=== PATIENT | male | born 1970 | race Caucasian/White ===

== ENCOUNTER 2017-09-27 09:23 | Emergency (ER) | payer BC ==
[2017-09-27 09:39] VITALS: BP 137/90
--- NOTE | 2017-09-27 10:13 | UC ---
Knee Pain HPI - HPI Summary HPI Summary: 47 y/o male presents to the urgent care c/o left knee pain since last 09/20. Pain worsen yesterday when he was kneeling and twisted his knee. Pain at rest is 0/10 and with walking is 7/10. Pt has not taking anything to alleviate symptoms. Pt denies Hx of injury, numbness or tingling sensation over the left leg or foot, redness, lumps, calf pain, SOB, chest pain, abdominal pain, N/V/D. Pt works every night standing up. - History of Current Complaint Chief Complaint: UCLowerExtremity Stated Complaint: LEG INJURY Time Seen by Provider: 09/27/17 10:06 Hx Obtained From: Patient Onset/Duration: Gradual Onset, Lasting Weeks - 1 week, Still Present, Worse Since - yesterday Severity Initially: Mild Severity Currently: Moderate Pain Intensity: 7 - w/ walking Pain Scale Used: 0-10 Numeric Character: Sharp, Dull Aggravating Factor(s): Other - walking Alleviating Factor(s): Rest Associated Signs And Symptoms: Positive: Negative. Negative: Swelling, Redness , Bruising, Fever, Weakness, Numbness, Tingling Able to Bear Weight: Yes - Risk Factors Septic Arthritis Risk Factor: Negative Gout Risk Factor: Negative - Allergies/Home Medications Allergies/Adverse Reactions: Allergies Allergy/AdvReac Type Severity Reaction Status Date / Time No Known Allergies Allergy Verified 09/27/17 09:39 PMH/Surg Hx/FS Hx/Imm Hx Previously Healthy: Yes - Pt denies PMHX - Surgical History Surgical History: None - Family History Known Family History: Positive: Cardiac Disease, Diabetes - Social History Occupation: Employed Full-time Lives: With Family Alcohol Use: None Substance Use Type: None Smoking Status (MU): Heavy Every Day Tobacco Smoker - Immunization History Most Recent Tetanus Shot: UNK Review of Systems Constitutional: Negative Skin: Negative Eyes: Negative ENT: Negative Respiratory: Negative Cardiovascular: Negative Gastrointestinal: Negative Genitourinary: Negative Motor: Negative Neurovascular: Negative Musculoskeletal: Decreased ROM - LF knee, Other: - left knee pain Neurological: Negative Psychological: Negative Is Patient Immunocompromised?: No All Other Systems Reviewed And Are Negative: Yes Physical Exam - Summary Physical Exam Summary: Vital Signs Reviewed: Yes General: well developed, well nourished male sitting in the examining table w/o any apparent distress Eyes: Positive: Conjunctiva Clear - PERRLA, EOMI, fundi grossly normal ENT: Positive: Normal ENT inspection, Hearing grossly normal, Pharynx normal, TMs normal Neck: Positive: Supple, Nontender, No Lymphadenopathy Respiratory: Positive: Chest nontender, Lungs clear, Normal breath sounds, No respiratory distress Cardiovascular: Positive: RRR, No Murmur, Pulses Normal, Brisk Capillary Refill Abdomen Description: Positive: Nontender, No Organomegaly, Soft. Negative: CVA Tenderness (R), CVA Tenderness (L) Bowel Sounds: Positive: Present Musculoskeletal: Positive: Strength Intact, No Edema, LF Knee: Pt is able to bear weight and ambulate with limping. No surface trauma, soft tissue swelling, or obvious effusion. No overlying erythema or warmth. The L knee is without obvious asymmetry or deformity when compared with the R knee , LF knee=RT knee equal in size 20cm.. Decreased ROM of LF knee due to pain. No tenderness to palpation of the patella, no effusion or ballottement. No tenderness over the infrapatellar tendon. No tenderness over the medial joint line, Tenderness over the lateral tibial plateaus and posterior knee, No tenderness, fullness or mass of the popliteal fossa. No quadriceps tenderness. No laxity of the ACL. PCL , MCL, or LCL. no collateral ligament laxity to valgus or varus stress. Negative Cyndi/Drawer sign. Negative Kimberly. Distal motor and neurovascular status intact. Neurological Exam: Normal Psychological Exam: Normal Skin Exam: Normal Triage Information Reviewed: Yes Vital Signs: Initial Vital Signs Temp 98.1 F 09/27/17 09:34 Pulse 91 09/27/17 09:34 Resp 20 09/27/17 09:34 BP 137/90 09/27/17 09:34 Pulse Ox 97 09/27/17 09:34 Knee Pain Course/Dx - Course Course Of Treatment: 47 y/o male presents to the urgent care c/o left knee pain since last Saturday09/21/5027. Pain worsen yesterday when he was kneeling and twisted his knee. Pain at rest is 0/10 and with walking is 7/10. Pt has not taking anything to alleviate symptoms. Pt denies Hx of injury, numbness or tingling sensation over the left leg or foot, redness, lumps, calf pain, SOB, chest pain, abdominal pain, N/V/D.Pt works every night standing up. Hx obtained. LF knee X-ray ordered. Impression:No acute osseous injury. Pt's knee immobilized w/ vaughn bandage.Advised RICE. Avoid strenuous exercise or standing for long period of time. Pt Rx Naproxen PO and if not improvement of symptoms to f/u with Orthopedic Dr Amaya or your PCP in 1 week for further evaluation and treatment. Pt's BP is elevated today advised to decrease salt in diet, monitor BP and f/u with PCP for further management. PT understood and agreed with D/C instructions. Pt left the clinic hemodynamically stable and ambulating. - Differential Dx/Diagnosis Differential Diagnosis/HQI/PQRI: Bursitis, Fracture (Closed), Gout, Kristina- Schlatter Disease, Patellofemoral Syndrome, Sprain, Strain, Tendonitis Provider Diagnoses: 1- Acte left knee pain. 2- Elevated BP w/o Hx of HTN Discharge - Sign-Out/Discharge Documenting (check all that apply): Discharge/Admit/Transfer - D/c home - Discharge Plan Condition: Stable Disposition: HOME Prescriptions: Naproxen TAB* [Naprosyn 250 mg TAB*] 250 mg PO Q8H PRN #30 tab PRN Reason: Pain Patient Education Materials: Knee Pain (ED), Low-Sodium Diet (ED) Forms: *Work Release Referrals: [facility] [[facility]] - 1 Week Dhiraj Amaya MD [Medical Doctor] - 1 Week Additional Instructions: 1-Please take medications as directed to alleviate pain and swelling. 2-Please apply ice, keep your knee immobilized with the splint. 3- Please f/u with Orthopedic Dr Amaya or your PCP in 1 week is not improvement of symptoms for further evaluation and treatment. 4-Your BP is border line elevated today. please decrease salt in your diet, monitor BP and if it continues to be elevated please f/u with your PCP for further management - Billing Disposition and Condition Condition: STABLE Disposition: HOME
--- NOTE | 2017-09-27 10:21 | RAD ---
INDICATION: Left knee pain COMPARISON: None TECHNIQUE: Standing weightbearing AP, lateral, tunnel, and sunrise views were obtained. FINDINGS: The bony structures, joint spaces, and soft tissues are normal for age. IMPRESSION: NO PLAIN RADIOGRAPHIC ABNORMALITIES.
--- NOTE | 2017-10-01 07:16 | UC ---
- Progress Note Progress Note: Pt with nonreactive HIV 1+ 2 No change in management 10/01/17 7:15 [facility] Discharge - Sign-Out/Discharge Documenting (check all that apply): Post-Discharge Follow Up - Discharge Plan Condition: Stable Disposition: HOME Prescriptions: Naproxen TAB* [Naprosyn 250 mg TAB*] 250 mg PO Q8H PRN #30 tab PRN Reason: Pain Patient Education Materials: Knee Pain (ED), Low-Sodium Diet (ED) Forms: *Work Release Referrals: [facility] [place] [facility] [Outside] - 1 Week Dhiraj Amaya MD [Medical Doctor] - 1 Week Additional Instructions: 1-Please take medications as directed to alleviate pain and swelling. 2-Please apply ice, keep your knee immobilized with the splint. 3- Please f/u with Orthopedic Dr Amaya or your PCP in 1 week is not improvement of symptoms for further evaluation and treatment. 4-Your BP is border line elevated today. please decrease salt in your diet, monitor BP and if it continues to be elevated please f/u with your PCP for further management - Billing Disposition and Condition Condition: STABLE Disposition: HOME
== END 2017-09-27 10:35 | disposition home or self-care (01) ==
LOC: UCEAST 09:23
DX: M25.562 Pain in left knee (principal); R03.0 Elevated blood-pressure reading, without diagnosis of hypertension; X50.1XXA Overexertion from prolonged static or awkward postures, initial encounter; Y92.9 Unspecified place or not applicable; Z11.4 Encounter for screening for human immunodeficiency virus [HIV]
CPT/HCPCS: 36415; 86703; 99202; G0463

== ENCOUNTER 2017-10-17 10:06 | Day surgery (SDC) | payer BC ==
[~2017-10-17 10:06] MED LIST: Buffered Lidocaine 0.9% SYRIN* 5 ML/SYR SYRINGE INTRADERM ONE
[2017-10-17] MEDS ORDERED: ceFAZolin 2 GM PREMIX (*) 2 GM/50 ML BAG IVPB ONE (10:14)
[2017-10-17] MEDS ORDERED: fentaNYL* 50 MCG/ML 2 ML VIAL (100 MCG VIAL) ONE ×2 (13:28→14:47)
[2017-10-17] MEDS ORDERED: Midazolam* 1 MG/ML 2 ML VIAL (2 MG) ONE (13:28)
[2017-10-17] MEDS ORDERED: DiMENhydriNATE IV* 50 MG/ML VIAL ONE (14:19)
[2017-10-17] MEDS ORDERED: Propofol* 10 MG/ML 20 ML BTL IV PUSH ONE (14:19)
[2017-10-17] MEDS ORDERED: Dexamethasone IV* 4 MG/ML 1 ML (4 MG) ONE (14:19)
[2017-10-17] MEDS ORDERED: Ketorolac INJ* 30 MG/ML 1 ML VIAL ONE (14:19)
[2017-10-17] MEDS ORDERED: fentaNYL* 50 MCG/ML 2 ML VIAL (100 MCG VIAL) IV PRN (14:53)
[2017-10-17] MEDS ORDERED: Naloxone* 0.4 MG/ML 1 ML VIAL IV PRN (14:53)
[2017-10-17] MEDS ORDERED: Acetaminophen TAB* 325 MG PO PRN (14:53)
[2017-10-17] MEDS ORDERED: Levalbuterol 0.63MG/3ML NEB* UNIT OF USE INH PRN (14:53)
[2017-10-17] MEDS ORDERED: HYDROcodone/ACETAMIN 5-325 MG* 1 TAB PO PRN (14:53)
[2017-10-17] MEDS ORDERED: PROCHLORPERAZINE INJ 5 MG/ML 2 ML VIAL IV PRN (14:53)
[2017-10-17] MEDS ORDERED: Ondansetron ODT TAB* 4 MG PO PRN (14:53)
--- NOTE | 2017-10-17 15:48 | OP ---
Operative Report - Blank - Operative Report Date of Operation: 10/17/17 Note: PATIENT: Hussain Benavides DATE OF : 1970 DATE OF SURGERY: 10/17/2017 SURGEON: Robel Cervantes MD YARD SWITCHER: MICHELL Sarmiento, whos assistance was necessary for positioning, retraction, help with instrumentation, and closure. ANESTHESIOLOGIST: Dr. Rodríguez PREOPERATIVE DIAGNOSIS: Left knee bucket-handle lateral meniscus tear POSTOPERATIVE DIAGNOSIS: Left knee bucket-handle lateral meniscus tear OPERATION: Left knee arthroscopy with partial lateral meniscectomy ANESTHESIA: GETA IMPLANTS: none TOURNIQUET TIME: Less than one hour with a well-padded thigh tourniquet at 250 mmHg. SPECIMENS: None ESTIMATED BLOOD LOSS: minimal COMPLICATIONS: none STATUS: Stable from the operating room to the recovery room and then home. INDICATIONS FOR PROCEDURE: Hussain had a knee injury with a displaced bucket handle lateral meniscus tear. He was having difficulty with motion and weightbearing. Both operative and non operative treatment alternatives were reviewed. Further, the nature and risks of surgery were reviewed in careful detail, in the office as well as the pre- operative holding area. Our discussions regarding the risks of surgery included , but were not limited to, infection, wound problems, nerve injury, neuroma, RSD , persistent symptoms, blood clot, failure of the surgery, need for further surgery, development of arthritis, and even the remote chance of catastrophic complication, including loss of limb. DESCRIPTION OF PROCEDURE: The patient was seen in the preoperative holding unit and informed written consent was obtained. The appropriate extremity was marked. The patient was then brought to the operating room and carefully positioned on the operating room table. Anesthesia was induced. All bony prominences were padded with great care. A well-padded thigh tourniquet was placed. A chlorhexidine based pre- scrub was performed followed by a chloraprep prep and drape in standard sterile fashion. A surgical safety pause was then conducted in which we confirmed the appropriate patient, extremity, planned procedure, availability of equipment, indication and administration of prophylactic antibiotics, and DVT prophylaxis in the form of a compression boot on the non-surgical extremity. I began with an Esmarch exsanguination of the limb and inflated the tourniquet. I insufflated the joint by injecting sterile saline. I began by making a standard anterolateral knee arthroscopy portal. The arthroscope was inserted into the knee joint and a diagnostic arthroscopy was performed. There were no advanced arthritic changes. Then under direct visualization, and anteromedial arthroscopy portal was made. I introduced a probe into the joint. The displaced lateral meniscus was sitting in the notch. I reduced this into the lateral compartment. A biter and oscillating shaver were used to debride the lateral meniscal tear back to a stable rim. I then performed an extensive irrigation of the joint while running the shaver in each of the knee compartments to remove any loose debris. Once thoroughly irrigated and debrided, I suctioned the fluid out of the joint. The arthroscopy portals were then closed utilizing 3-0 nylon. A sterile dressing was then applied. The patient was then awakened from anesthesia and transferred to the recovery room in stable condition. There were no complications. All needle and sponge counts were correct at the end of the case. ATTESTATION: I attest I was present and scrubbed and performed the critical portions of the procedure myself. POSTOPERATIVE PLAN: The plan is for weight-bearing as tolerated with crutches. Follow-up will be in 2 weeks for likely suture removal.
[2017-10-17 16:45] VITALS: BP 131/82
== END 2017-10-17 16:45 | disposition home or self-care (01) ==
LOC: OR 10:06
PROVIDERS: ATTEND Orthopaedic Surgery
DX: S83.252A Bucket-handle tear of lateral meniscus, current injury, left knee, initial encounter (principal); F17.210 Nicotine dependence, cigarettes, uncomplicated; Z87.442 Personal history of urinary calculi; X50.0XXA Overexertion from strenuous movement or load, initial encounter; Y93.89 Activity, other specified; Y92.9 Unspecified place or not applicable
CPT/HCPCS: J0690; J1100; J1240; J1885; J2250; J2704; J3010